=== PATIENT | male | born 1975 | race Hispanic/Latino ===

== ENCOUNTER 2017-10-29 23:23 | Emergency (ER) | payer MEDICAID, OTHER ==
--- NOTE | 2017-10-29 23:35 | ED PDOC ---
Arrival/HPI <Trent Mills - Last Filed: 10/30/17 00:26> - General Historian: Patient <Tunde Mcarthur - Last Filed: 10/30/17 01:10> - General Time Seen by Provider: 10/29/17 23:34 - History of Present Illness Narrative History of Present Illness (Text): 10/29/17 23:34 41 y/o male, no significant pmh, nkda, c/o lt. sided chest pain happened about 21 hours ago. Pt. stated that he was developing lt. sided chest pain early this morning around 3am, aching pain, aggravated by touching the left chest, non -exertional, lasted 2-3 seconds, total of 2 episodes, no coughing, no history of leg or calf pain, no night sweat, no rash, no other medical or psychological complaints. (Tunde Mcarthur) Past Medical History - Provider Review Nursing Documentation Reviewed: Yes - Tetanus Immunization Tetanus Immunization: Unknown - Cardiac Hx Hypertension: Yes - Musculoskeletal/Rheumatological Hx Falls: No - Psychiatric Hx Anxiety: Yes Hx Depression: Yes Hx Substance Use: No - Past Surgical History Past Surgical History: No Previous - Anesthesia Hx Anesthesia: No - Suicidal Assessment Feels Threatened In Home Enviroment: No <Tunde Mcarthur - Last Filed: 10/30/17 01:10> Family/Social History - Physician Review Nursing Documentation Reviewed: Yes Family/Social History: Unknown Family HX Smoking Status: Heavy Smoker > 10 Cigarettes Daily Hx Alcohol Use: No Hx Substance Use: No Hx Substance Use Treatment: No <Tunde Mcarthur - Last Filed: 10/30/17 01:10> Allergies/Home Meds <Trent Mills - Last Filed: 10/30/17 00:26> <Tunde Mcarthur - Last Filed: 10/30/17 01:10> Allergies/Adverse Reactions: Allergies No Known Allergies Allergy (Verified 09/02/15 22:19) Home Medications: Home Meds Medication Instructions Recorded Confirmed Alprazolam [Xanax] 0.5 mg PO BID 08/28/15 08/29/15 Review of Systems - Review of Systems Constitutional: absent: Fatigue, Fevers Eyes: absent: Vision Changes ENT: absent: Hearing Changes Respiratory: absent: SOB, Cough Cardiovascular: Chest Pain. absent: Palpitations Gastrointestinal: absent: Abdominal Pain, Diarrhea, Nausea, Vomiting Skin: absent: Rash, Pruritis, Abscess Psychiatric: absent: Anxiety, Depression, Suicidal Ideation <Tunde Mcarthur - Last Filed: 10/30/17 01:10> Physical Exam Vital Signs Reviewed: Yes Temperature: Afebrile Blood Pressure: Normal Pulse: Regular Respiratory Rate: Normal Appearance: Positive for: Well-Appearing, Non-Toxic, Comfortable Pain Distress: Mild Mental Status: Positive for: Alert and Oriented X 3 - Systems Exam Head: Present: Atraumatic, Normocephalic Pupils: Present: PERRL Extroacular Muscles: Present: EOMI Conjunctiva: Present: Normal Mouth: Present: Moist Mucous Membranes Neck: Present: Normal Range of Motion Respiratory/Chest: Present: Clear to Auscultation, Good Air Exchange, Tender to Palpation ( pain is 100% reproducible by palpating on the lt. pectoralis major muscle region. ). No: Respiratory Distress, Accessory Muscle Use, Wheezes, Decreased Breath Sounds, Rales, Retracting, Rhonchi, Tachypneic Cardiovascular: Present: Regular Rate and Rhythm, Normal S1, S2. No: Murmurs Abdomen: Present: Normal Bowel Sounds. No: Tenderness, Distention, Peritoneal Signs, Rebound, Guarding Back: Present: Normal Inspection Upper Extremity: Present: Normal Inspection. No: Cyanosis, Edema Lower Extremity: Present: Normal Inspection. No: Edema Neurological: Present: GCS=15, CN II-XII Intact, Speech Normal, Motor Func Grossly Intact, Gait Normal, Memory Normal Skin: Present: Warm, Dry, Normal Color. No: Rashes Psychiatric: Present: Alert, Oriented x 3, Normal Insight, Normal Concentration <Tunde Mcarthur - Last Filed: 10/30/17 01:10> Vital Signs Temp Pulse Resp BP Pulse Ox 10/29/17 23:43 98.1 F 82 18 129/71 99 Medical Decision Making <Trent Mills - Last Filed: 10/30/17 00:26> - RAD Interpretation Technology Support Analyst: Radiologist <Tunde Mcarthur - Last Filed: 10/30/17 01:10> ED Course and Treatment: 10/29/17 23:54 -labs/cardiac enzyme -ekg -cxr -IVF/toradol -observe and reassess 10/30/17 01:05 -HEART score is 1 -EKG: NSR @ 79 BPM, no ST elevation or depression, no T wave inversion, compared with previous ekg -Chest Xray show no active disease -Labs show no acute findings -Troponin is within normal limit -BNP is within normal -Chest pain is over 20 hours and troponin is negative, asymptomatic, relief with IV toradol, vitally stable, will discharge home. -Discharge home with naproxen, bed rest, rest, follow up with your own pmd and water conservation specialist within 2 days, return to the ER for any new or worsening signs or symptoms. (Tunde Mcarthur) - Lab Interpretations Lab Results: 10/29/17 23:30 10/29/17 23:30 Lab Results 10/29/17 23:30: WBC 7.7, RBC 4.80, Hgb 13.5 L, Hct 39.8 L, MCV 82.9, MCH 28.1, MCHC 33.9, RDW 13.2, Plt Count 263, MPV 10.7, Gran % 62.9, Lymph % (Auto) 28.6, Meriwether % (Auto) 6.9 H, Eos % (Auto) 1.3 L, Baso % (Auto) 0.3, Gran # 4.87, Lymph # (Auto) 2.2, Meriwether # (Auto) 0.5, Eos # (Auto) 0.1, Baso # (Auto) 0.02 10/29/17 23:30: Sodium 141, Potassium 3.6, Chloride 102, Carbon Dioxide 29, Anion Gap 14, BUN 17, Creatinine 0.9, Est GFR ( Amer) > 60, Est GFR (Non- Af Amer) > 60, Random Glucose 153 H, Calcium 9.4, Total Bilirubin 0.5, AST 40, ALT 26, Alkaline Phosphatase 97, Lactate Dehydrogenase 426, Total Creatine Kinase 55, Troponin I < 0.01, NT-Pro-B Natriuret Pep 32.9, Total Protein 7.7, Albumin 4.1, Globulin 3.7, Albumin/Globulin Ratio 1.1, Lipase 61 - RAD Interpretation Radiology Orders: 10/29/17 23:48 CHEST PORTABLE [RAD] Stat 10/29/17 23:48 CHEST PORTABLE [RAD] Stat FINDINGS: Lungs: Unremarkable. No consolidation. Pleural space: Unremarkable. No pneumothorax. Heart: Unremarkable. No cardiomegaly. Mediastinum: Unremarkable. Bones/joints: Unremarkable. IMPRESSION: No evidence of an acute cardiopulmonary abnormality. Thank you for allowing us to participate in the care of your patient. Dictated and Authenticated by: Steffi Carmichael MD 10/30/2017 12:44 AM Eastern Time ([place] & [place]) (Tunde Mcarthur) - Medication Orders Current Medication Orders: Sodium Chloride (Sodium Chloride 0.9%) 1,000 mls @ 100 mls/hr IV .Q10H NATAN Last Admin: 10/30/17 00:07 Dose: 100 mls/hr eMAR Start Stop Document 10/30/17 00:07 RD (Rec: 10/30/17 00:07 RD [id number]) Intravenous Solution Start Date 10/30/17 Start Time 00:07 Discontinued Medications Ketorolac Tromethamine (Toradol) 30 mg IVP STAT STA Stop: 10/29/17 23:54 Last Admin: 10/30/17 00:07 Dose: 30 mg MAR Pain Assessment Document 10/30/17 00:07 RD (Rec: 10/30/17 00:08 RD [id number]) Pain Reassessment Is this a pain reassessment? No Sleep Is patient sleeping during reassessment? No Presence of Pain Presence of Pain Yes Pain Scale Used Pain Scale Used Numeric Location Left, Right or Bilateral Left Pain Location Body Site Chest Description Description Intermittent Intensity of Pain at present 6 IVP Administration Document 10/30/17 00:07 RD (Rec: 10/30/17 00:08 RD [id number]) Charges for Administration # of IVP Administrations 1 - PA / INTERCHANGE AGENT / Resident Statement JOSSY has reviewed & agrees with the documentation as recorded. <Trent Mills - Last Filed: 10/30/17 00:26> - PA / INTERCHANGE AGENT / Resident Statement JOSSY has reviewed & agrees with the documentation as recorded. <Tunde Mcarthur - Last Filed: 10/30/17 01:10> Disposition/Present on Arrival <Trent Mills - Last Filed: 10/30/17 00:26> - Present on Arrival Any Indicators Present on Arrival: No History of DVT/PE: No History of Uncontrolled Diabetes: No Urinary Catheter: No History of Decub. Ulcer: No History Surgical Site Infection Following: None - Disposition Have Diagnosis and Disposition been Completed?: Yes Disposition Time: 00:37 Patient Plan: Discharge <Tunde Mcarthur Sharon - Last Filed: 10/30/17 01:10> - Disposition Diagnosis: Atypical chest pain, Myalgia Disposition: HOME/ ROUTINE Patient Problems: Current Active Problems Problem Status Onset Atypical chest pain Acute Myalgia Acute Condition: IMPROVED Discharge Instructions (ExitCare): Chest Pain (ED) Additional Instructions: -Discharge home with naproxen, bed rest, rest, follow up with your own pmd and water conservation specialist within 2 days, return to the ER for any new or worsening signs or symptoms. Prescriptions: Naproxen 500 mg PO BID PRN #20 tablet PRN Reason: Other Referrals: [facility] at [facility] [place] [Outside] - Follow up with primary Thomas Chiang MD [Staff Provider] - Follow up with primary Forms: WORK NOTE
[2017-10-29 23:45] VITALS: TEMP 98.1; O2SAT 99; BMI 42.5
[2017-10-29] MEDS ORDERED: Sodium Chloride 0.9% 1,000 ML IV SCH (23:45)
[2017-10-30 00:07] LABS: BASO # 0.02 K/mm3 (0.0-2.0); BASO % 0.3 % (0.0-3.0); EOS # 0.1 (0.0-0.7); EOS % 1.3 % (1.5-5.0); GRAN # 4.87 (1.4-6.5); GRAN % 62.9 % (50.0-68.0); HEMOGLOBIN 13.5 g/dL (14.0-18.0); LYMPH # 2.2 (1.2-3.4); LYMPH % 28.6 % (22.0-35.0); MEAN CELL VOLUME 82.9 fl (80.0-105.0); MEAN CORPUSCULAR HEMOGLOBIN 28.1 pg (25.0-35.0); MEAN CORPUSCULAR HGB CONC 33.9 g/dl (31.0-37.0); MEAN PLATELET VOLUME 10.7 fl (7.0-11.0); MONO # 0.5 (0.1-0.6); MONO % 6.9 % (1.0-6.0); RBC 4.8 10^6/uL (3.5-6.1); RED CELL DISTRIBUTION WIDTH 13.2 % (11.5-14.5); WHITE BLOOD COUNT 7.7 10^3/ul (4.5-11.0)
[2017-10-30 00:13] LABS: ALB/GLOB RATIO 1.1 (1.1-1.8); ALBUMIN 4.1 g/dL (3.0-4.8); ALT/SGPT 26 U/L (7-56); AST/SGOT 40 U/L (17-59); BLOOD UREA NITROGEN 17 mg/dL (7-21); CALCIUM 9.4 mg/dL (8.4-10.5); GFR AFRICAN-AMERICAN > 60; GFR NON-AFRICAN AMERICAN > 60; LIPASE 61 U/L (23-300)
[2017-10-30 00:24] LABS: B-TYPE NATRIURETIC PEPTIDE 32.9 pg/mL (0-450); TROPONIN I < 0.01 ng/mL
--- NOTE | 2017-10-30 00:45 | RAD ---
EXAM: XR Chest, 1 View CLINICAL HISTORY: 41 years old, male; Signs and symptoms; Shortness of breath; Additional info: Medical clearance TECHNIQUE: Frontal view of the chest. COMPARISON: CR - CHEST PORTABLE 2015-08-28 21:24 FINDINGS: Lungs: Unremarkable. No consolidation. Pleural space: Unremarkable. No pneumothorax. Heart: Unremarkable. No cardiomegaly. Mediastinum: Unremarkable. Bones/joints: Unremarkable. IMPRESSION: No evidence of an acute cardiopulmonary abnormality.
[2017-10-30 01:28] VITALS: BP 122/70; PULSE 80; RESP 17
--- NOTE | 2017-10-30 17:34 | CARD ---
APPROVED REPORT EKG Measurement Heart [id number] <Conclusion> Normal sinus rhythm Normal ECG
== END 2017-10-30 01:26 | disposition home or self-care (01) ==
LOC: ED 23:23
DX: R07.9 Chest pain, unspecified (principal); M79.1 Myalgia; I10 Essential (primary) hypertension; F17.210 Nicotine dependence, cigarettes, uncomplicated
CPT/HCPCS: 71045; 80053; 82550; 83615; 83690; 83880; 84484; 85025; 93005; 96374; 99283; J1885; J7040

== ENCOUNTER 2018-08-06 02:02 | Emergency (ER) | payer OTHER ==
[2018-08-06 02:02] VITALS: BMI 42.5
[2018-08-06 02:42] VITALS: RESP 18; TEMP 98.3
[2018-08-06] MEDS ORDERED: Sodium Chloride 0.9% 1,000 ML IV STA (02:46)
--- NOTE | 2018-08-06 02:52 | ED PDOC ---
Arrival/HPI - General Chief Complaint: Abdominal Pain Time Seen by Provider: 08/06/18 02:20 Historian: Patient - History of Present Illness Narrative History of Present Illness (Text): 08/06/18 02:46 42 year old male, whose past medical history includes renal cancer status post laproscopic tumor removal, and Hypertension, presents to the emergency department with sharp lower back pain, for a few days. Patient states he has co nsistent pain in his RUQ and intermittent stabbing pain in his right lower back. Patient states pain has been getting progressively worse. Patient states he is worried his cancer has returned. Patient denies any alcohol, smoking, or drug use. Patient also denies any dysuria, urinary frequency, hematuria, fever, chills, nausea, vomiting, shortness of breath, chest pain, or any other complaints. Time/Duration: < week Symptom Onset: Gradual Symptom Course: Worsening Quality: Stabbing Past Medical History - Provider Review Nursing Documentation Reviewed: Yes - Infectious Disease Hx of Infectious Diseases: None - Tetanus Immunization Tetanus Immunization: Unknown - Cardiac Hx Hypertension: Yes - Pulmonary Hx Respiratory Disorders: No - Neurological Hx Neurological Disorder: No - HEENT Hx HEENT Disorder: No - Renal Hx Renal Disorder: No - Endocrine/Metabolic Hx Endocrine Disorders: No - Hematological/Oncological Hx Blood Disorders: Yes Hx Cancer: Yes (Tumor on kidney) - Integumentary Hx Dermatological Disorder: No - Musculoskeletal/Rheumatological Hx Falls: No - Gastrointestinal Hx Gastrointestinal Disorders: No - Genitourinary/Gynecological Hx Genitourinary Disorders: No - Psychiatric Hx Anxiety: Yes Hx Depression: Yes Hx Substance Use: No - Past Surgical History Past Surgical History: No Previous - Anesthesia Hx Anesthesia: Yes Hx Anesthesia Reactions: No Hx Malignant Hyperthermia: No - Suicidal Assessment Feels Threatened In Home Enviroment: No Family/Social History - Physician Review Nursing Documentation Reviewed: Yes Family/Social History: No Known Family HX Smoking Status: Heavy Smoker > 10 Cigarettes Daily Hx Alcohol Use: No Hx Substance Use: No Hx Substance Use Treatment: No Allergies/Home Meds Allergies/Adverse Reactions: Allergies No Known Allergies Allergy (Verified 08/06/18 02:42) Home Medications: Home Meds Medication Instructions Recorded Confirmed RX: Alprazolam [Xanax] 0.5 mg PO BID 08/28/15 08/06/18 Review of Systems - Physician Review All systems were reviewed & negative as marked: Yes - Review of Systems Constitutional: absent: Fevers, Night Sweats Respiratory: absent: SOB Cardiovascular: absent: Chest Pain Gastrointestinal: Abdominal Pain. absent: Nausea, Vomiting Genitourinary Male: absent: Dysuria, Frequency, Hematuria Musculoskeletal: Back Pain Physical Exam Vital Signs Reviewed: Yes Vital Signs Temp Pulse Resp BP Pulse Ox 08/06/18 02:20 98.3 F 71 18 140/81 98 Temperature: Afebrile Blood Pressure: Normal Pulse: Regular Respiratory Rate: Normal Appearance: Positive for: Well-Appearing, Non-Toxic, Comfortable Pain Distress: None Mental Status: Positive for: Alert and Oriented X 3 - Systems Exam Head: Present: Atraumatic, Normocephalic Pupils: Present: PERRL Extroacular Muscles: Present: EOMI Conjunctiva: Present: Normal Mouth: Present: Moist Mucous Membranes Neck: Present: Normal Range of Motion Respiratory/Chest: Present: Clear to Auscultation, Good Air Exchange. No: Respiratory Distress, Accessory Muscle Use, Tender to Palpation (No chest wall tenderness) Cardiovascular: Present: Regular Rate and Rhythm, Normal S1, S2. No: Murmurs Abdomen: Present: Tenderness (RUQ tenderness). No: Distention, Peritoneal Signs Back: Present: CVA Tenderness (Mild right CVA tenderness) Upper Extremity: Present: Normal Inspection. No: Cyanosis, Edema Lower Extremity: Present: Normal Inspection. No: Edema Neurological: Present: GCS=15, CN II-XII Intact, Speech Normal Skin: Present: Warm, Dry, Normal Color. No: Rashes Psychiatric: Present: Alert, Oriented x 3, Normal Insight, Normal Concentration Medical Decision Making ED Course and Treatment: 08/06/18 02:54 Impression: 42 year old male presents with right lower back and RUQ pain Plan: -- CT ABD & Pelvis -- CMP, Lipase, Mg -- CBC -- Toradol -- Urinalysis -- Reassess and disposition Prior Visits: Notes and results from previous visits were reviewed. Progress Notes: 08/06/18 05:05 CT ABD & Pelvis reviewed by radiologist, shows: Hepatomegaly with hepatic steatosis. No evidence of acute abdominal or pelvic pathology. 08/06/18 05:10 Discussed results with patient. Patient is thankful his cancer is still in remission, and expects to see his PMD and Urologist on Thursday and Thursday respectively. I have urged him to keep those two appointments. Patient states felling better and would like to go home. Patient is very well appearing and non-toxic. Vital signs are stable. I discussed the results of the work-up, diagnosis and treatment. Written discharge instructions were provided to patient. Additional verbal instructions were given and discussed with patient. We discussed the importance of follow up with PCP/consultants. I also reiterated reasons to immediately return to the ER including: worsening in current symptoms and/or new, continued, or concerning symptoms. Pt understood and agreed. - Scribe Statement The provider has reviewed the documentation as recorded by the Tawnya Paulino Provider Scribe Attestation: All medical record entries made by the Scribe were at my direction and personally dictated by me. I have reviewed the chart and agree that the record accurately reflects my personal performance of the history, physical exam, medical decision making, and the department course for this patient. I have also personally directed, reviewed, and agree with the discharge instructions and disposition. Disposition/Present on Arrival - Present on Arrival Any Indicators Present on Arrival: No History of DVT/PE: No History of Uncontrolled Diabetes: No Urinary Catheter: No History of Decub. Ulcer: No History Surgical Site Infection Following: None - Disposition Have Diagnosis and Disposition been Completed?: Yes Diagnosis: Abdominal pain Disposition: HOME/ ROUTINE Disposition Time: 05:17 Patient Plan: Discharge Condition: IMPROVED Discharge Instructions (ExitCare): Acute Abdomen (Belly Pain), Adult (DC) Referrals: Paramjit Peacock MD [Primary Care Provider] - Follow up with primary Forms: [employer] (Bengali)
[2018-08-06 03:25] LABS: URINE BILIRUBIN NEGATIVE (NEGATIVE); URINE BLOOD NEGATIVE (NEGATIVE); URINE GLUCOSE (UA) NEGATIVE (NEGATIVE); URINE LEUKOCYTE ESTERASE NEGATIVE Leu/uL (NEGATIVE); URINE PROTEIN NEGATIVE mg/dL (<30 mg/dL); URINE UROBILINOGEN 0.2 E.U./dL (<1 E.U./dL)
[2018-08-06 03:26] LABS: BASO # 0.03 K/mm3 (0.0-2.0); BASO % 0.4 % (0.0-3.0); EOS # 0.1 (0.0-0.7); GRAN # 4.27 (1.4-6.5); LYMPH # 1.9 (1.2-3.4); LYMPH % 28.8 % (22.0-35.0); MEAN CELL VOLUME 82.2 fl (80.0-105.0); MEAN PLATELET VOLUME 10.1 fl (7.0-11.0); MONO # 0.4 (0.1-0.6); MONO % 5.8 % (1.0-6.0); RBC 4.65 10^6/uL (3.5-6.1); RED CELL DISTRIBUTION WIDTH 13.1 % (11.5-14.5); URINE APPEARANCE CLEAR (CLEAR); URINE COLOR YELLOW (YELLOW); WHITE BLOOD COUNT 6.7 10^3/uL (4.5-11.0)
[2018-08-06 03:32] LABS: ALB/GLOB RATIO 1.1 (1.1-1.8); ALBUMIN 4.3 g/dL (3.0-4.8); ALT/SGPT 26 U/L (7-56); AST/SGOT 50 U/L (17-59); BLOOD UREA NITROGEN 18 mg/dL (7-21); CALCIUM 9.1 mg/dL (8.4-10.5); GFR NON-AFRICAN AMERICAN > 60; LIPASE 53 U/L (23-300)
[2018-08-06 05:52] VITALS: BP 134/72; PULSE 73; O2SAT 99
--- NOTE | 2018-08-06 10:02 | CT ---
Date of service: 08/06/2018 PROCEDURE: CT Abdomen and Pelvis with contrast HISTORY: RUQ and R flank pain, h/o kidney cancer COMPARISON: None. TECHNIQUE: Contrast dose: 100 mL of Omnipaque 350 intravenously. Axial and reformatted coronal and sagittal CT images of the abdomen and pelvis were obtained after IV contrast administration Radiation dose: Total exam DLP = 1638.02 mGy-cm. This CT exam was performed using one or more of the following dose reduction techniques: Automated exposure control, adjustment of the mA and/or kV according to patient size, and/or use of iterative reconstruction technique. FINDINGS: LOWER THORAX: Unremarkable. LIVER: Mild hepatomegaly with findings suggestive of [id number] hepatic steatosis PE GALLBLADDER AND BILE DUCTS: Unremarkable. PANCREAS: Unremarkable. No gross lesion or ductal dilatation. SPLEEN: Unremarkable. ADRENALS: Unremarkable. No mass. KIDNEYS AND URETERS: The kidneys enhance symmetrically. No CT evidence of enhancing mass lesion. No evidence of hydronephrosis. VASCULATURE: Unremarkable. No aortic aneurysm. No aortic atherosclerotic calcification or mural plaque present. BOWEL: Unremarkable. No obstruction. No gross mural thickening. APPENDIX: No evidence of appendicitis. PERITONEUM: Unremarkable. No free fluid. No free air. LYMPH NODES: Unremarkable. No enlarged lymph nodes. BLADDER: Mild urinary bladder wall thickening is noted. REPRODUCTIVE: Unremarkable. BONES: No acute fracture. OTHER FINDINGS: None. IMPRESSION: No CT evidence of acute pathology. No CT evidence of mass lesion in the kidneys. If clinically warranted further evaluation by ultrasound or MRI may be obtained. Mild hepatomegaly with findings suggestive of [id number] hepatic steatosis. Preliminary report was submitted by [facility] Radiology contains concordant findings
== END 2018-08-06 05:30 | disposition home or self-care (01) ==
LOC: ED 02:02
DX: R10.11 Right upper quadrant pain (principal); F17.210 Nicotine dependence, cigarettes, uncomplicated; I10 Essential (primary) hypertension
CPT/HCPCS: 74177; 80053; 81003; 83690; 83735; 85025; 96374; 99284; J1885; J7030; Q9967